=== PATIENT | male | born 1955 | race Caucasian/White ===

== ENCOUNTER 2017-12-03 11:58 | Emergency (ER) | payer OTHER ==
[2017-12-03 23:15] LABS: ADD MAN DIFF? NO
[2017-12-03 23:25] LABS: BASOPHILS % 0.4 % (0.0-2.0); EOSINOPHILS # 0.2 10^3/ul (0.0-0.5); EOSINOPHILS % 2.3 % (0.0-7.0); HEMATOCRIT 37.8 % (42.0-52.0); HEMOGLOBIN 12.6 g/dl (14.0-18.0); LYMPHOCYTES # 2.6 10^3/ul (0.8-2.9); LYMPHOCYTES % 25.5 % (15.0-51.0); MEAN CORPUSCULAR HEMOGLOBIN 29.9 pg (29.0-33.0); MEAN CORPUSCULAR HGB CONC 33.3 g/dl (32.0-37.0); MEAN CORPUSCULAR VOLUME 89.6 fl (82.0-101.0); MONOCYTE # 0.6 10^3/ul (0.3-0.9); NEUTROPHIL # 6.5 10^3/ul (1.6-7.5); NEUTROPHILS % 64.9 % (39.0-77.0); PLATELET COUNT 227 10^3/UL (140-415); RED BLOOD COUNT 4.22 10^6/ul (4.70-6.10); RED CELL DISTRIBUTION WIDTH 13.2 % (11.5-14.5)
[2017-12-03] MEDS: FENTAnyl 50 MCG/ML VIAL IV (23:25)
[2017-12-03] MEDS: SOD CHLORIDE 0.9% 1,000 ML IV (23:26)
[2017-12-03] MEDS: ONDANSETRON 4 MG INJ IV (23:26)
[2017-12-03 23:30] LABS: ADD UMIC NO; UR ASCORBIC ACID 20 mg/dL (NEGATIVE); UR BILIRUBIN (Dip) NEGATIVE (NEGATIVE); UR BLOOD (Dip) NEGATIVE (NEGATIVE); UR CLARITY CLEAR (CLEAR); UR COLOR YELLOW (YELLOW); UR GLUCOSE (Dip) NEGATIVE (NEGATIVE); UR KETONES (Dip) NEGATIVE (NEGATIVE); UR LEUKOCYTE ESTERASE (Dip) NEGATIVE Leu/ul (NEGATIVE); UR NITRITE (Dip) NEGATIVE (NEGATIVE); UR SPECIFIC GRAVITY (Dip) 1.011 (1.003-1.030); UR TOTAL PROTEIN (Dip) NEGATIVE (NEGATIVE); UR UROBILINOGEN (Dip) NEGATIVE (NEGATIVE)
[2017-12-03 23:42] LABS: INR 0.96; PROTIME 12.9 Sec (11.9-14.9)
[2017-12-03 23:50] LABS: ALANINE AMINOTRANSFERASE 76 IU/L (13-69); ALBUMIN 4.4 g/dl (3.3-4.9); ALBUMIN/GLOBULIN RATIO 1.25; ALKALINE PHOSPHATASE 70 IU/L (42-121); ANION GAP 18 (8-16); ASPARTATE AMINO TRANSFERASE 56 IU/L (15-46); BILIRUBIN,INDIRECT 0.2 mg/dl (0-1.1); BILIRUBIN,TOTAL 0.2 mg/dl (0.2-1.3); BLOOD UREA NITROGEN 14 mg/dl (7-20); CALCIUM 10.1 mg/dl (8.4-10.2); CARBON DIOXIDE 28 mmol/L (21-31); CHLORIDE 94 mmol/L (97-110); CREATININE 0.84 mg/dl (0.61-1.24); GLUCOSE 197 mg/dl (70-220); LIPASE 80 U/L (23-300); POTASSIUM 3.9 mmol/L (3.5-5.1); SODIUM 136 mmol/L (135-144); TOTAL PROTEIN 7.9 g/dl (6.1-8.1)
[2017-12-04 00:07] LABS: TROPONIN-I < 0.012 ng/ml (0.00-0.12)
[2017-12-04] MEDS: IOHEXOL 300MG/ML 150 ML BTL (01:00)
[2017-12-04] MEDS: SOD CHLORIDE 0.9% 100 ML (01:00)
[2017-12-04] MEDS: morphine 4 MG/ML VIAL IV (04:21)
== END 2017-12-04 04:56 | disposition home or self-care (01) ==
LOC: E/R 12-04 04:56
DX: K40.20 Bilateral inguinal hernia, without obstruction or gangrene, not specified as recurrent (principal); I10 Essential (primary) hypertension; E11.9 Type 2 diabetes mellitus without complications; J44.9 Chronic obstructive pulmonary disease, unspecified; J45.909 Unspecified asthma, uncomplicated; R50.9 Fever, unspecified; D64.9 Anemia, unspecified; Z79.82 Long term (current) use of aspirin; Z79.84 Long term (current) use of oral hypoglycemic drugs; Z85.46 Personal history of malignant neoplasm of prostate
CPT/HCPCS: 36415; 71045; 74177; 80053; 81003; 83690; 84484; 85025; 85610; 87040; 87086; 87400; 93005; 96374; 96375; 99285-25